=== PATIENT | male | born 1990 | race Caucasian/White ===

== ENCOUNTER 2022-03-03 16:35 | Emergency (ER) | payer OTHER ==
[~2022-03-03] VITALS: Ht 170.2 cm; Wt 70.8 kg
[2022-03-03 16:35] VITALS: BP_SYST 138
--- NOTE | 2022-03-03 16:35 | NUR ---
BROUGHT BACK TO BED #8 VIA WHEELCHAIR, PLACED IN BED AND TRIAGED. REPORT GIVEN TO KARISSA
--- NOTE | 2022-03-03 16:41 | NUR ---
Patient to ER bed 08 to gown for evaluation. Side rails up.
--- NOTE | 2022-03-03 16:53 | NUR ---
DR PATEL AT BEDSIDE FOR EVALUATION
--- NOTE | 2022-03-03 16:55 | NUR ---
XRAYS BEING DONE AT BEDSIDE.
[2022-03-03] MEDS ORDERED: IBUP-1971 PO (17:08)
[2022-03-03] MEDS ORDERED: IBUPROFEN 800 MG TABLET PO ONE (17:45)
[2022-03-03] MEDS ORDERED: HYDROcodone/ACETAMIN 10-325 MG TAB PO ONE (17:45)
[2022-03-03 18:02] VITALS: BP_SYST 134
--- NOTE | 2022-03-03 18:03 | NUR ---
PT RE-ASSSED BY ED MD THEN D/C'D HOME. NEEL MENDIOLA AAPIED BY EMT. PT REFUSED CRUCHES SINCE HE HAS ONE HOME. Patient given written and verbal discharge instructions and verbalizes understanding. ER MD discussed with patient the results and treatment provided. Patient in stable condition. ID arm band removed. Patient educated on pain management and to follow up with PMD. Pain Scale3. Opportunity for questions provided and answered. Medication side effect fact sheet provided.
== END 2022-03-03 18:02 | disposition home or self-care (01) ==
LOC: SED 16:35
DX: S93.402A Sprain of unspecified ligament of left ankle, initial encounter (principal); Z88.0 Allergy status to penicillin; Z79.899 Other long term (current) drug therapy; W21.02XA Struck by soccer ball, initial encounter; Y93.66 Activity, soccer; Y92.89 Other specified places as the place of occurrence of the external cause; Y99.8 Other external cause status
CPT/HCPCS: 99283